=== PATIENT | female | born 2000 | race Caucasian/White ===

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

== ENCOUNTER → 2020-01-28 | Outpatient (CLI) | payer SELFPAY ==
[~2020-01-28] MED LIST changes: +PREDNISONE20 MG PO
== END ==
LOC: COL.RAD 11:15
DX: R10.2 Pelvic and perineal pain (principal)

== ENCOUNTER 2020-05-28 09:08 | Emergency (ER) | payer SELFPAY ==
[~2020-05-28] VITALS: Ht 154.9 cm; Wt 55.5 kg
[2020-05-28 09:18] VITALS: TEMP 98.1
[2020-05-28] MEDS ORDERED: ZYRTEC 10MG10 MG PO (09:54)
[2020-05-28] MEDS ORDERED: PRENATAL DHA 200 SG PO (09:56)
[2020-05-28 10:00] LABS: BASO # 0.1 (0.0-0.2); BASO % 0.6 % (0.0-2.0); EOS # 0.6 (0.0-0.7); EOS % 7.3 % (0-4.0); GRAN # 5.1 (1.4-6.5); GRAN % 63.6 % (42.2-75.2); HEMATOCRIT 42.3 % (35.0-45.0); HEMOGLOBIN 14.3 g/dl (12.0-15.0); LYMPH # 1.8 (1.2-3.4); LYMPH % 22.4 % (20.0-51.0); MEAN CELL VOLUME 93 fl (80.0-95.0); MEAN CORPUSCULAR HEMOGLOBIN 31 pg (26.0-32.0); MEAN CORPUSCULAR HGB CONC 34 g/dl (33.0-37.0); MEAN PLATELET VOLUME 9.7 fl (7.4-10.4); MONO # 0.5 (0.1-0.6); MONO % 5.7 % (1.7-9.3); PLATELET COUNT 260 K/mm3 (130-400); RED BLOOD COUNT 4.55 M/mm3 (4.10-5.30); REDCELL DISTRIBUTION WIDTH-CV 12.7 % (11.5-14.5)
[2020-05-28 10:11] LABS: ALBUMIN 4.6 gm/dL (3.5-5.0); BILIRUBIN,TOTAL 0.5 mg/dL (0.0-1.0); CALCIUM 9.4 mg/dL (8.4-10.2); CREATININE, serum 0.48 (0.52-1.25); TOTAL PROTEIN 7.8 gm/dL (6.4-8.2)
[2020-05-28] MEDS ORDERED: CLEOCIN HCL300 MG PO (10:55)
[2020-05-28 11:55] VITALS: BP 102/64; PULSE 76
== END 2020-05-28 11:55 | disposition home or self-care (01) ==
LOC: COL.ER 09:08
PROVIDERS: Emergency Medicine
DX: O03.9 Complete or unspecified spontaneous abortion without complication (principal); O23.591 Infection of other part of genital tract in pregnancy, first trimester; Z3A.12 12 weeks gestation of pregnancy

== ENCOUNTER 2020-12-12 19:28 | Emergency (ER) | payer SELFPAY ==
[~2020-12-12] VITALS: Ht 154.9 cm; Wt 55.5 kg
[~2020-12-12 19:28] MED LIST changes: +CLEOCIN HCL300 MG PO; +PRENATAL DHA 200 SG PO; +ZYRTEC 10MG10 MG PO
[2020-12-12 20:29] LABS: COLLECTION METHOD CATHETER
[2020-12-12 20:32] LABS: BASO % 0.3 % (0.0-2.0); EOS # 0.1 (0.0-0.7); EOS % 0.8 % (0-4.0); GRAN # 6.1 (1.4-6.5); GRAN % 67.6 % (42.2-75.2); HEMATOCRIT 39.7 % (35.0-45.0); HEMOGLOBIN 13.3 g/dl (12.0-15.0); LYMPH # 2.1 (1.2-3.4); LYMPH % 23.5 % (20.0-51.0); MEAN CELL VOLUME 93 fl (80.0-95.0); MEAN CORPUSCULAR HEMOGLOBIN 31 pg (26.0-32.0); MEAN CORPUSCULAR HGB CONC 34 g/dl (33.0-37.0); MONO # 0.7 (0.1-0.6); MONO % 7.5 % (1.7-9.3); PLATELET COUNT 319 K/mm3 (130-400); RED BLOOD COUNT 4.28 M/mm3 (4.10-5.30); REDCELL DISTRIBUTION WIDTH-CV 12.4 % (11.5-14.5)
[2020-12-12 20:36] LABS: PH 6 (5-8); SQUAMOUS EPITHELIAL 0-2 /hpf; URINE APPEARANCE Clear; URINE BACTERIA None Seen /hpf; URINE BILIRUBIN Negative (NEGATIVE); URINE BLOOD 2+ (NEGATIVE); URINE COLOR Colorless; URINE GLUCOSE Negative (NEGATIVE); URINE KETONE Negative (NEGATIVE); URINE LEUKOCYTE ESTERASE Negative (NEGATIVE); URINE NITRATE Negative (NEGATIVE); URINE PROTEIN(semi-quant) Negative (NEGATIVE); URINE RBC 0-2 /hpf; URINE UROBILINOGEN Negative (NEGATIVE)
[2020-12-12 20:48] LABS: ALBUMIN 4.6 gm/dL (3.5-5.0); BILIRUBIN,TOTAL 0.2 mg/dL (0.0-1.0); CREATININE, serum 0.52 (0.52-1.25); POTASSIUM 3.7 mmol/L (3.4-5.0); TOTAL PROTEIN 8.6 gm/dL (6.4-8.2)
[2020-12-12 21:42] VITALS: BP 122/64; PULSE 84; TEMP 97
== END 2020-12-12 22:25 | disposition home or self-care (01) ==
LOC: COL.ER 19:28
PROVIDERS: Nurse Practitioner Family
DX: O26.891 Other specified pregnancy related conditions, first trimester (principal); R31.9 Hematuria, unspecified; Z3A.01 Less than 8 weeks gestation of pregnancy

== ENCOUNTER 2021-08-05 19:04 | Outpatient (CLI) | payer SELFPAY ==
[~2021-08-05] VITALS: Ht 149.9 cm; Wt 71.7 kg
--- NOTE | 2021-08-05 19:15 | NUR ---
191- PATIENT IS A AT 39.4, OF DR. MÁRQUEZ SENT OVER FOR A NST. PATIENT REPORTS GFM, NO CONTRACTIONS, NO BLEEDING AND NO LOF. 1919- EFM AND TOCO ON AND TRACING, ASSESSMENT COMPLETED, VITALS TAKEN. PLAN OF CARE DISCUSSED. PATIENT DENIES FURTHER NEEDS. CALL LIGHT WITHIN REACH.
[2021-08-05] MEDS ORDERED: LEXAPRO 10MG10 MG PO (19:26)
[2021-08-05 19:30] VITALS: BP 132/83; PULSE 81; TEMP 97.9
== END 2021-08-05 20:20 | disposition home or self-care (01) ==
LOC: LDRO 19:04
DX: O36.8330 Maternal care for abnormalities of the fetal heart rate or rhythm, third trimester, not applicable or unspecified (principal); Z3A.39 39 weeks gestation of pregnancy; Z86.16 Personal history of COVID-19

== ENCOUNTER 2021-08-07 20:47 | Outpatient (CLI) | payer SELFPAY ==
[~2021-08-07] VITALS: Ht 154.9 cm; Wt 72.7 kg
[~2021-08-07 20:47] MED LIST changes: +LEXAPRO 10MG10 MG PO
--- NOTE | 2021-08-07 20:52 | NUR ---
PATIENT AMBULATED UP TO UNIT AND SHOWED TO ROOM LDR 4. PT PRESENTS COMPLAINING OF CRAMPING ALL DAY LONG. PT DENIES SROM, VAGINAL BLEEDING OR DECREASED MOVEMENT. PT IS , 39.6 WEEKS, GBS+.
--- NOTE | 2021-08-07 20:59 | NUR ---
EFM AND TOCO APPLIED
[2021-08-07 21:30] VITALS: BP 122/73; PULSE 78; TEMP 97.8
[2021-08-07 22:00] VITALS: BP 113/62; PULSE 73
[2021-08-07 22:15] VITALS: BP 112/72; PULSE 71
--- NOTE | 2021-08-07 22:20 | NUR ---
PT DENIES FEELING CRAMPING SINCE ARRIVING TO UNIT. DISCHARGE INSTRUCTIONS REVIEWED AND LABOR PRECAUTIONS GIVEN. PT VERBALIZED AN UNDERSTANDING AND DENIED FURTHER QUESTIONS. PT GIVEN COPY OF DISCHARGE INSTRUCTIONS.
--- NOTE | 2021-08-07 22:24 | NUR ---
PT DISCHARGED TO HOME AT THIS TIME IN STABLE UNDELIVERED CONDITION. PT AMBULATED OFF UNIT AT THIS TIME
== END 2021-08-07 22:24 | disposition home or self-care (01) ==
LOC: LDRO 20:47 → LDR 20:56 → LDRO 22:24
DX: O26.893 Other specified pregnancy related conditions, third trimester (principal); R25.2 Cramp and spasm; Z3A.39 39 weeks gestation of pregnancy
CPT/HCPCS: OP

== ENCOUNTER 2021-08-13 00:01 | Outpatient (CLI) | payer SELFPAY ==
[~2021-08-13] VITALS: Ht 149.9 cm; Wt 73.2 kg
--- NOTE | 2021-08-13 00:10 | NUR ---
0010-, 40.5 patient ambulates onto unit, accompanied by mother. Oriented to LDR4. Instructed to change into gown. Patient reports feeling irregular but painful ctx for the last 48 hours. Denies LOF, VB, or decreased movement. Patient did report she lost her mucus plug earlier tonight. EFM/TOCO explained and applied. SVE /-3. Plan of care discussed, patient verbalizes understanding.
[2021-08-13 00:30] VITALS: BP 129/68; PULSE 63; TEMP 98.4
[2021-08-13] MEDS ORDERED: PROMETHAZINE12.5 M5 (00:30)
[2021-08-13] MEDS ORDERED: TYLENOL 500MG500 MG PO (00:31)
[2021-08-13 01:20] VITALS: BP 119/71; PULSE 73
== END 2021-08-13 01:41 | disposition home or self-care (01) ==
LOC: LDRO 00:01 → LDR 00:12 → LDRO 01:41
DX: O62.9 Abnormality of forces of labor, unspecified (principal); Z3A.40 40 weeks gestation of pregnancy; Z86.16 Personal history of COVID-19
CPT/HCPCS: OP

== ENCOUNTER 2021-08-13 05:12 | Outpatient (CLI) | payer SELFPAY ==
[~2021-08-13] VITALS: Ht 154.9 cm; Wt 73.2 kg
[~2021-08-13 05:12] MED LIST changes: +PROMETHAZINE12.5 M5; +TYLENOL 500MG500 MG PO
--- NOTE | 2021-08-13 05:55 | NUR ---
21 YO AT 40.5 WEEKS GESTATION TO LDR 5 WITH C/O CTXS THAT HAVE GOTTEN CLOSER TOGETHER THRU THE NIGHT, NOW REPORTS THAT THEY ARE 4-5 MINUTES APART. PT DENIES LEAKING FLUID OR VAGINAL BLEEDING AND REPORTS GOOD ACTIVITY
[2021-08-13 06:00] VITALS: BP 153/88; PULSE 82; TEMP 98.3
--- NOTE | 2021-08-13 06:37 | NUR ---
LILLIANAE by this RN -3. Update given to Dr. Lao. Orders for discharge home received. Discharge instructions and return precautions reviewed with pt and her family at the bedside. Pt verbalized an understanding, agreed with the plan and states no questions or concerns at this time.
== END 2021-08-13 07:07 | disposition home or self-care (01) ==
LOC: LDRO 05:12 → LDR 05:15 → LDRO 07:07
DX: O62.9 Abnormality of forces of labor, unspecified (principal); Z3A.40 40 weeks gestation of pregnancy
CPT/HCPCS: OP

== ENCOUNTER 2021-08-13 15:52 | Inpatient (IN) | payer SELFPAY ==
[~2021-08-13] VITALS: Ht 154.9 cm; Wt 73.2 kg
[2021-08-13] VITALS (20 sets, daily range): BP systolic 105–145; BP diastolic 51–86; PULSE 55–96; TEMP 97.4–98.9
[2021-08-13 16:34] LABS: BASO % 0.4 % (0.0-2.0); EOS % 0.4 % (0.0-4.0); GRAN # 7.5 K/mm3 (1.4-6.5); GRAN % 67.1 % (42.2-75.2); HEMATOCRIT 41.2 % (37.0-47.0); HEMOGLOBIN 14.2 g/dl (12.5-16.0); LYMPH # 2.9 K/mm3 (1.2-3.4); LYMPH % 26.4 % (20.0-51.0); MEAN CELL VOLUME 91 fl (80.0-100.0); MEAN CORPUSCULAR HEMOGLOBIN 31 pg (27-31); MEAN CORPUSCULAR HGB CONC 35 g/dl (33.0-37.0); MEAN PLATELET VOLUME 11.9 fl (7.4-10.4); MONO # 0.6 K/mm3 (0.1-0.6); MONO % 5.2 % (1.7-9.3); PLATELET COUNT 178 K/mm3 (130-400); RED BLOOD COUNT 4.55 M/mm3 (4.10-5.30); REDCELL DISTRIBUTION WIDTH-CV 15.2 % (11.5-14.5)
--- NOTE | 2021-08-13 18:34 | NUR ---
Dr Gates into room, SVE with AROM, clear fluid. Pt to Marilee position, FHT's with gradual decel to 70's, difficult to maintain tracing, FHt's continue in 70's , FSE applied by Dr Gates, FHT's gradually increase to 100's, then 110's. To RL with peanut ball, FHT's 130's. Total time from onset to baseline 5 min.
--- NOTE | 2021-08-13 19:05 | NUR ---
Pt to LL with peanut ball
--- NOTE | 2021-08-13 19:50 | NUR ---
Emesis 200cc. 1954 Pt states "my headache is gone since I Threw up" Zofran 4mg IV for nausea.
--- NOTE | 2021-08-13 20:50 | NUR ---
SVE as noted. Pt moved to WR with peanut ball.
--- NOTE | 2021-08-13 23:00 | NUR ---
Pt reports 'pressure', SVE as noted. to Marilee position.
[2021-08-14] VITALS (21 sets, daily range): BP systolic 102–138; BP diastolic 60–85; PULSE 49–93; TEMP 97.7–100
--- NOTE | 2021-08-14 01:11 | NUR ---
Dr Gates into room. SVE with no changes. Dr Gates discusses arrest of dilation and descent with pt: discusses C/S. Pitocin off, Lr bolus continues. Pt tearful. 0127 To C/Section per bed.
--- NOTE | 2021-08-14 01:30 | NUR ---
700 CC EMESIS EN ROUTE TO C/S ROOM
--- NOTE | 2021-08-14 02:55 | NUR ---
EMESIS 200CC
--- NOTE | 2021-08-14 04:50 | NUR ---
pt states "I can move my legs a little. I think my stomach hurt when I laughed" Instructed pt on splinting abd when laughing or coughing.
--- NOTE | 2021-08-14 05:30 | NUR ---
Urine tea colored in bag, clearing to yellow in tubing
[2021-08-15 07:20] VITALS: BP 118/78; PULSE 72; TEMP 97.7
--- NOTE | 2021-08-15 07:39 | NUR ---
0730PATIENT AND SIGINIFICANT OTHER WATCHING DISCHARGE DVDS AT THIS TIME.
[2021-08-15] MEDS ORDERED: PERCOCET 325 MG1 TA2 PO (10:14)
[2021-08-15] MEDS ORDERED: IBU800 M1 PO (10:14)
[2021-08-15 16:54] VITALS: BP 122/87; PULSE 80; TEMP 99.1
[2021-08-15 20:25] VITALS: BP 123/80; PULSE 69; TEMP 98.8
[2021-08-16 07:00] VITALS: BP 114/68; PULSE 72; TEMP 98.1
== END 2021-08-16 11:00 | disposition home or self-care (01) | DRG 788 ==
LOC: LDRO 15:52 → LDR 16:30 → OB 08-14 07:18
PROVIDERS: Student in an Organized Health Care Education/Training Program; ADMIT Obstetrics & Gynecology
PROC: 10D00Z1 Extraction of Products of Conception, Low, Open Approach (ICD-10-PCS; principal; 2021-08-14)
DX: O99.824 Streptococcus B carrier state complicating childbirth (principal); O99.344 Other mental disorders complicating childbirth; F32.A Depression, unspecified; O43.893 Other placental disorders, third trimester; O76 Abnormality in fetal heart rate and rhythm complicating labor and delivery; O62.1 Secondary uterine inertia; O64.0XX0 Obstructed labor due to incomplete rotation of fetal head, not applicable or unspecified; O75.89 Other specified complications of labor and delivery; Z3A.40 40 weeks gestation of pregnancy; Z37.0 Single live birth; Z23 Encounter for immunization
CPT/HCPCS: J0690; J1885; J2210; J2400; J2405; J2540; J2590; J7120

== ENCOUNTER 2024-04-13 19:58 | Emergency (ER) | payer SELFPAY ==
[~2024-04-13] VITALS: Ht 152.4 cm; Wt 65.9 kg
[~2024-04-13 19:58] MED LIST changes: +IBU800 M1 PO; +PERCOCET 325 MG1 TA2 PO
[2024-04-13 20:06] VITALS: TEMP 98.4
[2024-04-13] MEDS ORDERED: predniSONE 20 MG TAB PO ONE (22:00)
[2024-04-13] MEDS ORDERED: PREDNISONE20 MG PO (22:01)
[2024-04-13 22:15] VITALS: BP 113/72; PULSE 84
== END 2024-04-13 22:15 | disposition home or self-care (01) ==
LOC: COL.ER 19:58
DX: J40 Bronchitis, not specified as acute or chronic (principal)
CPT/HCPCS: J7512